=== PATIENT | female | born 1940 | race Caucasian/White ===

== ENCOUNTER 2021-01-09 19:39 | Emergency (ER) | payer MEDICARE, BC ==
[2021-01-09] MEDS ORDERED: Sodium Chloride 0.9% 10 ML Syringe FLUSH PRN (21:10)
[2021-01-09] MEDS ORDERED: Sodium Chloride 0.9% 1,000 ML IV SCH ×2 (21:45)
[2021-01-09 22:18] LABS: CORONAVIRUS COVID-19 NAA POSITIVE (NEGATIVE)
[2021-01-09] MEDS ORDERED: Ondansetron 4 MG Tab.DIS PO ONE (23:45)
--- NOTE | 2021-01-09 23:52 | EDM.PDOC ---
ED HPI GENERAL MEDICAL PROBLEM - General Chief Complaint: Gastrointestinal Problem Stated Complaint: VOMITING,NAUSEA Time Seen by Provider: 01/09/21 21:24 Source of Information: Reports: Patient, Family History Limitations: Reports: No Limitations - History of Present Illness INITIAL COMMENTS - FREE TEXT/NARRATIVE: Nancy is an 80-year-old female presenting to the ED for evaluation of nausea, vomiting, and diarrhea that started 3 days ago. Patient has had fever, chills, diminished appetite but denies any loss of taste or smell. She has had a headache and body aches. She has had a nonproductive cough but no significant shortness of breath. She has been vaccinated for COVID-19 with the J and J vaccine on 05/31/2020 per her report. - Related Data Allergies Allergy/AdvReac Type Severity Reaction Status Date / Time codeine Allergy Dizziness Verified 01/09/21 21:06 Home Meds: Home Meds . 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: Musculoskeletal History: Reports: None Neurological History: Reports: None Psychiatric History: Reports: None Endocrine/Metabolic History: Reports: Diabetes, Type II Hematologic History: Reports: None Immunologic History: Reports: None Oncologic (Cancer) History: Reports: None Dermatologic History: Reports: None - Past Surgical History Female Surgical History: Reports: Breast Biopsy Neurological Surgical History: Reports: None Social & Family History - Tobacco Use Tobacco Use Status *Q: Never Tobacco User - Caffeine Use Caffeine Use: Reports: Coffee - Recreational Drug Use Recreational Drug Use: No ED ROS GENERAL - Review of Systems Review Of Systems: See Below Constitutional: Reports: Fever, Chills, Malaise, Weakness HEENT: Reports: Rhinitis Respiratory: Reports: Cough Endocrine: Reports: Fatigue GI/Abdominal: Reports: Abdominal Pain, Diarrhea, Nausea, Vomiting : Reports: No Symptoms Musculoskeletal: Reports: Muscle Pain Skin: Reports: No Symptoms Neurological: Reports: Headache Psychiatric: Reports: No Symptoms Hematologic/Lymphatic: Reports: No Symptoms Immunologic: Reports: No Symptoms ED EXAM, GI/ABD - Physical Exam Exam: See Below Exam Limited By: No Limitations General Appearance: Alert, Anxious, Mild Distress Eyes: Bilateral: EOMI Throat/Mouth: Normal Voice, No Airway Compromise, Other (Dry mucous membranes) Head: Atraumatic, Normocephalic Neck: Normal Inspection, Supple. No: Lymphadenopathy (R), Lymphadenopathy (L) Respiratory/Chest: No Respiratory Distress, Rhonchi (Scattered rhonchi in the bases) Cardiovascular: Normal Peripheral Pulses, Regular Rate, Rhythm, No Murmur GI/Abdominal Exam: Soft, Tender (Mild epigastric tenderness), Abnormal Bowel Sounds (Diminished bowel sounds). No: Guarding, Rebound Extremities: Normal Inspection Neurological: Alert, Oriented, Normal Cognition, No Motor/Sensory Deficits Psychiatric: Normal Affect, Normal Mood Skin Exam: Warm, Dry, Intact, Normal Color Course - Vital Signs Last Recorded V/S: Last Vital Signs Temp 35.9 C L 01/09/21 21:07 Pulse 78 01/09/21 21:07 Resp 16 01/09/21 21:07 BP 154/68 H 01/09/21 21:07 Pulse Ox 93 L 01/09/21 21:07 - Orders/Labs/Meds Orders: Active Orders 24 hr Category Date Time Status Chest 1V Frontal [CR] Stat Exams 01/10/21 00:05 Ordered UA W/MICROSCOPIC [URIN] Stat Lab 01/09/21 23:30 Received Sodium Chloride 0.9% [Normal Saline] 1,000 ml Med 01/09/21 21:45 Active IV ASDIRECTED Sodium Chloride 0.9% [Saline Flush] Med 01/09/21 21:10 Active 10 ml FLUSH ASDIRECTED PRN Isolation [COMM] Stat Oth 01/09/21 21:11 Ordered Saline Lock Insert [OM.PC] Routine Oth 01/09/21 21:10 Ordered Medication Orders Sodium Chloride (Normal Saline) 1,000 mls @ 500 mls/hr IV ASDIRECTED CELESTINE Last Admin: 01/09/21 21:39 Dose: 500 mls/hr Documented by: NEPTALI Sodium Chloride (Sodium Chloride 0.9% 10 Ml Syringe) 10 ml FLUSH ASDIRECTED PRN PRN Reason: Keep Vein Open Last Admin: 01/09/21 21:39 Dose: 10 ml Documented by: NEPTALI Labs: Laboratory Tests 01/09/21 01/09/21 01/09/21 Range/Units 21:10 21:10 21:11 WBC 5.9 (4.5-11.0) K/uL RBC 4.65 (3.30-5.50) M/uL Hgb 13.5 (12.0-15.0) g/dL Hct 39.9 (36.0-48.0) % MCV 86 (80-98) fL MCH 29 (27-31) pg MCHC 34 (32-36) % Plt Count 204 (150-400) K/uL Neut % (Auto) 80.8 H (36-66) % Lymph % (Auto) 11.4 L (24-44) % Grant % (Auto) 7.8 H (2-6) % Eos % (Auto) 0.0 L (2-4) % Baso % (Auto) 0.0 (0-1) % D-Dimer, Quantitative (0.0-500.0) ng/mL Sodium 132 L (140-148) mmol/L Potassium 3.7 (3.6-5.2) mmol/L Chloride 94 L (100-108) mmol/L Carbon Dioxide 21 (21-32) mmol/L Anion Gap 20.7 H (5.0-14.0) mmol/L BUN 18 (7-18) mg/dL Creatinine 0.8 (0.6-1.0) mg/dL Est Cr Clr Drug Dosing TNP Estimated GFR (MDRD) > 60 (>60) Glucose 150 H (74-106) mg/dL POC Glucose 158 H (74-106) MG/DL Lactic Acid (0.4-2.0) mmol/L Calcium 8.8 (8.5-10.1) mg/dL Total Bilirubin 0.5 (0.2-1.0) mg/dL AST 12 L (15-37) U/L ALT 15 (12-78) U/L Alkaline Phosphatase 64 (46-116) U/L Lactate Dehydrogenase (82-234) U/L C-Reactive Protein 5.68 H (0.0-0.3) mg/dL Total Protein 7.3 (6.4-8.2) g/dL Albumin 3.3 L (3.4-5.0) g/dL Globulin 4.0 H (2.3-3.5) g/dL Albumin/Globulin Ratio 0.8 L (1.2-2.2) Procalcitonin ng/mL Influenza Type A RNA (NEGATIVE) RSV RNA (INAAT) (NEGATIVE) Influenza Type B RNA (NEGATIVE) SARS-CoV-2 RNA (LITZY) (NEGATIVE) 01/09/21 01/09/21 01/09/21 Range/Units 21:11 21:17 21:20 WBC (4.5-11.0) K/uL RBC (3.30-5.50) M/uL Hgb (12.0-15.0) g/dL Hct (36.0-48.0) % MCV (80-98) fL MCH (27-31) pg MCHC (32-36) % Plt Count (150-400) K/uL Neut % (Auto) (36-66) % Lymph % (Auto) (24-44) % Grant % (Auto) (2-6) % Eos % (Auto) (2-4) % Baso % (Auto) (0-1) % D-Dimer, Quantitative 692.53 H (0.0-500.0) ng/mL Sodium (140-148) mmol/L Potassium (3.6-5.2) mmol/L Chloride (100-108) mmol/L Carbon Dioxide (21-32) mmol/L Anion Gap (5.0-14.0) mmol/L BUN (7-18) mg/dL Creatinine (0.6-1.0) mg/dL Est Cr Clr Drug Dosing Estimated GFR (MDRD) (>60) Glucose (74-106) mg/dL POC Glucose 158 H (74-106) MG/DL Lactic Acid (0.4-2.0) mmol/L Calcium (8.5-10.1) mg/dL Total Bilirubin (0.2-1.0) mg/dL AST (15-37) U/L ALT (12-78) U/L Alkaline Phosphatase (46-116) U/L Lactate Dehydrogenase (82-234) U/L C-Reactive Protein (0.0-0.3) mg/dL Total Protein (6.4-8.2) g/dL Albumin (3.4-5.0) g/dL Globulin (2.3-3.5) g/dL Albumin/Globulin Ratio (1.2-2.2) Procalcitonin ng/mL Influenza Type A RNA Negative (NEGATIVE) RSV RNA (INAAT) Negative (NEGATIVE) Influenza Type B RNA Negative (NEGATIVE) SARS-CoV-2 RNA (LITZY) Positive H (NEGATIVE) 01/09/21 01/09/21 01/09/21 Range/Units 21:20 21:20 21:20 WBC (4.5-11.0) K/uL RBC (3.30-5.50) M/uL Hgb (12.0-15.0) g/dL Hct (36.0-48.0) % MCV (80-98) fL MCH (27-31) pg MCHC (32-36) % Plt Count (150-400) K/uL Neut % (Auto) (36-66) % Lymph % (Auto) (24-44) % Grant % (Auto) (2-6) % Eos % (Auto) (2-4) % Baso % (Auto) (0-1) % D-Dimer, Quantitative (0.0-500.0) ng/mL Sodium (140-148) mmol/L Potassium (3.6-5.2) mmol/L Chloride (100-108) mmol/L Carbon Dioxide (21-32) mmol/L Anion Gap (5.0-14.0) mmol/L BUN (7-18) mg/dL Creatinine (0.6-1.0) mg/dL Est Cr Clr Drug Dosing Estimated GFR (MDRD) (>60) Glucose (74-106) mg/dL POC Glucose (74-106) MG/DL Lactic Acid 1.1 (0.4-2.0) mmol/L Calcium (8.5-10.1) mg/dL Total Bilirubin (0.2-1.0) mg/dL AST (15-37) U/L ALT (12-78) U/L Alkaline Phosphatase (46-116) U/L Lactate Dehydrogenase 207 (82-234) U/L C-Reactive Protein (0.0-0.3) mg/dL Total Protein (6.4-8.2) g/dL Albumin (3.4-5.0) g/dL Globulin (2.3-3.5) g/dL Albumin/Globulin Ratio (1.2-2.2) Procalcitonin < 0.05 ng/mL Influenza Type A RNA (NEGATIVE) RSV RNA (INAAT) (NEGATIVE) Influenza Type B RNA (NEGATIVE) SARS-CoV-2 RNA (LITZY) (NEGATIVE) Meds: Medications Generic Name Dose Route Start Last Admin Trade Name Livan PRN Reason Stop Dose Admin Sodium Chloride 1,000 mls @ 500 mls/hr 01/09/21 21:45 01/09/21 21:39 Normal Saline IV 500 mls/hr ASDIRECTED CELESTINE Administration Sodium Chloride 10 ml 01/09/21 21:10 01/09/21 21:39 Sodium Chloride 0.9% 10 Ml Syringe FLUSH 10 ml ASDIRECTED PRN Administration Keep Vein Open Discontinued Medications Generic Name Dose Route Start Last Admin Trade Name Ramanaq PRN Reason Stop Dose Admin Sodium Chloride 1,000 mls @ 500 mls/hr 01/09/21 21:45 Normal Saline IV ASDIRECTED CELESTINE Ondansetron HCl 4 mg 01/09/21 23:45 01/09/21 23:50 Ondansetron 4 Mg Tab.Dis PO 01/09/21 23:46 4 mg ONETIME ONE Administration - Radiology Interpretation Free Text/Narrative:: I reviewed her 1 view chest x-ray demonstrating - Re-Assessments/Exams Free Text/Narrative Re-Assessment/Exam: 01/10/21 00:09 I reviewed the patient's labs showing a normal CBC with a leukocyte count of 5.9, hemoglobin of 13.5, hematocrit of 39.9 and a platelet count of 204,000. Her comprehensive metabolic panel shows a sodium 132, potassium 3.7, chloride of 94, bicarbonate of 21, BUN of 18 with a creatinine of 0.8 and a glucose of 150. Her calcium is 8.8, AST is 12, ALT is 15, and alkaline phosphatase is 64. Her Covid came back positive but negative for influenza and RSV. Her Covid labs show a CRP of 5.68, pro calcitonin less than 0.05, LDH of 207, lactic acid of 1.1 and a D-dimer of 692. Her chest x-ray showed very mild groundglass scattered infiltrates in the bases right greater than left. Her oximetry has been greater than 90% on room air her entire time here so I do believe she is suitable for discharge home. I did order her monoclonal antibody therapy. Somebody will contact her tomorrow to arrange this. Departure - Departure Time of Disposition: 00:29 Disposition: Home, Self-Care 01 Clinical Impression: COVID-19, Dehydration Nausea and vomiting Qualifiers: Vomiting type: unspecified Vomiting Intractability: intractable Qualified Code(s): R11.2 - Nausea with vomiting, unspecified Diarrhea Qualifiers: Diarrhea type: unspecified type Qualified Code(s): R19.7 - Diarrhea, unspecified - Discharge Information Instructions: 10 Things You Can Do to Manage Your COVID-19 Symptoms at Home - [facility] (09/16/2020), COVID-19 Frequently Asked Questions, Dehydration, Adult, Diarrhea, Adult, [id number], Nausea, Adult, [place], COVID-19: What to Do If You Are Sick- [facility] (05/18/2020) Referrals: Raf Curiel MD [Primary Care Provider] - Forms: ED Department Discharge Care Plan Goals: Your work-up today has shown that you have COVID-19 as the cause for your nausea, vomiting, and diarrhea. I will schedule you for monoclonal antibody therapy and you will be called in the morning to schedule a time to receive this. This may help lessen the degree and length of time that you have Covid. In the meantime, continue to drink fluids to prevent further dehydration. I am sending you home with a prescription for Zofran for nausea control. If you should develop more significant shortness of breath or weakness please come back to be reevaluated. Sepsis Event Note (ED) - Evaluation Sepsis Screening Result: No Definite Risk - Focused Exam Vital Signs: Vital Signs Temp Pulse Resp BP Pulse Ox 01/09/21 21:07 35.9 C L 78 16 154/68 H 93 L - My Orders Last 24 Hours: My Active Orders 01/09/21 21:10 Sodium Chloride 0.9% [Saline Flush] 10 ml FLUSH ASDIRECTED PRN Saline Lock Insert [OM.PC] Routine 01/09/21 21:11 Isolation [COMM] Stat 01/09/21 21:45 Sodium Chloride 0.9% [Normal Saline] 1,000 ml IV ASDIRECTED 01/09/21 23:30 UA W/MICROSCOPIC [URIN] Stat 01/10/21 00:05 Chest 1V Frontal [CR] Stat - Assessment/Plan Last 24 Hours: My Active Orders 01/09/21 21:10 Sodium Chloride 0.9% [Saline Flush] 10 ml FLUSH ASDIRECTED PRN Saline Lock Insert [OM.PC] Routine 01/09/21 21:11 Isolation [COMM] Stat 01/09/21 21:45 Sodium Chloride 0.9% [Normal Saline] 1,000 ml IV ASDIRECTED 01/09/21 23:30 UA W/MICROSCOPIC [URIN] Stat 01/10/21 00:05 Chest 1V Frontal [CR] Stat
--- NOTE | 2021-01-10 08:59 | CR ---
CHEST: Portable 01/10/2021 and at 12:37 AM CLINICAL HISTORY:Guevara virus COMPARISON:None FINDINGS: Heart size and pulmonary vascular normal. There are atherosclerotic changes in the aorta. There is patchy density in both lower lung guaman. There are no effusions. Impression: Patchy bilateral lower lobe infiltrates
== END 2021-01-10 00:54 | disposition home or self-care (01) ==
LOC: JP.ED 19:39
DX: U07.1 COVID-19 (principal); E86.0 Dehydration; R11.2 Nausea with vomiting, unspecified; R19.7 Diarrhea, unspecified; E11.9 Type 2 diabetes mellitus without complications; I10 Essential (primary) hypertension; Z88.5 Allergy status to narcotic agent
CPT/HCPCS: 0241U; 36415; 71045; 80053; 81001; 82947; 83605; 83615; 84145; 85025; 85379; 86140; 99284; A9270; J7030; Q0243

== ENCOUNTER 2024-04-08 14:33 | Emergency (ER) | payer MEDICARE, BC | END 2024-04-08 15:17 | disposition left against medical advice (07) | LOC: JP.ED 14:33 | DX: Z53.21 Procedure and treatment not carried out due to patient leaving prior to being seen by health care provider (principal) ==

== ENCOUNTER 2024-11-28 08:14 | Emergency (ER) | payer MEDICARE, BC ==
[2024-11-28 09:16] LABS: BASOPHILS ABSOLUTE AUTO 0.04 K/uL (0.00-0.10); BASOPHILS PERCENT AUTO 0.7 % (0.1-1.3); EOSINOPHILS ABSOLUTE AUTO 0.07 K/uL (0.00-0.40); EOSINOPHILS PERCENT AUTO 1.3 % (0.0-5.4); IMMATURE GRAN ABSOLUTE AUTO 0.03 K/uL (0.00-0.23); IMMATURE GRAN PERCENT AUTO 0.6 % (0.0-0.7); LYMPHOCYTES ABSOLUTE AUTO 1.19 K/uL (0.8-3.3); LYMPHOCYTES PERCENT AUTO 21.8 % (11.4-47.7); MONOCYTES ABSOLUTE AUTO 0.33 K/uL (0.20-0.90); MONOCYTES PERCENT AUTO 6.1 % (3.3-12.6); NEUTROPHILS ABSOLUTE AUTO 3.79 K/uL (1.0-7.6); NEUTROPHILS PERCENT AUTO 69.5 % (40.0-78.1); PLATELET COUNT,PLT 286 K/uL (130-375); RED BLOOD CELL COUNT 4.04 M/uL (3.77-5.24); WHITE BLOOD CELL COUNT,WBC 5.5 K/uL (3.2-11.0)
[2024-11-28] MEDS: Ondansetron 4 MG/2 ML SDV IVPUSH ONE (09:20)
[2024-11-28 09:36] LABS: A/G RATIO 1.1 (1.2-2.2); ALANINE AMINOTRANSFERASE,ALT 17 U/L (12-78); ASPARTATE AMNIOTRANSFERASE,AST 13 U/L (15-37); BILIRUBIN TOTAL 0.4 mg/dL (0.2-1.0); BLOOD UREA NITROGEN,BUN 14 mg/dL (7-18); CARBON DIOXIDE,CO2 24 mmol/L (21-32); CHLORIDE,CL 102 mmol/L (100-108); CREATININE 1.2 mg/dL (0.6-1.0); EST CRCL DRUG DOSING (CG) 25.39 mL/min; ESTIMATED GFR 44 mL/min (>60); GLUCOSE RANDOM 153 mg/dL (74-106); POTASSIUM,K 4.6 mmol/L (3.6-5.2); PROTEIN TOTAL,TP 7.2 g/dL (6.4-8.2); SODIUM,NA 137 mmol/L (140-148)
[2024-11-28 10:36] LABS: APPEARANCE,URINE CLEAR (CLEAR); GLUCOSE,URINE NEGATIVE (NEGATIVE); OCCULT BLOOD,URINE NEGATIVE (NEGATIVE)
== END 2024-11-28 11:15 | disposition home or self-care (01) ==
LOC: JP.ED 08:14
DX: R11.10 Vomiting, unspecified (principal); R19.7 Diarrhea, unspecified; R53.1 Weakness; I10 Essential (primary) hypertension; E11.9 Type 2 diabetes mellitus without complications; Z86.16 Personal history of COVID-19; Z87.891 Personal history of nicotine dependence; Z88.5 Allergy status to narcotic agent; Z79.82 Long term (current) use of aspirin; Z79.84 Long term (current) use of oral hypoglycemic drugs; Z79.899 Other long term (current) drug therapy
CPT/HCPCS: 36415; 80053; 81003; 85025; 96361; 96374; 99284; J2405; J7030